=== PATIENT | male | born 1985 | race Caucasian/White ===

== ENCOUNTER 2021-06-22 22:50 | Emergency (ER) | payer BC, SELFPAY ==
--- NOTE | 2021-06-22 22:56 | ECG_ITS ---
Measurements Intervals [place] Rate: 117 P: 55 CT: 178 QRS: -53 QRSD: 94 T: 71 QT: 299 QTc: 418 Interpretive Statements SINUS TACHYCARDIA INCOMPLETE RIGHT BUNDLE BRANCH BLOCK LEFT ANTERIOR FASCICULAR BLOCK BASELINE ARTIFACT- I, III, AVR, V1 ABNORMAL ECG Electronically Signed On 06-23-2021 7:59:17 CDT by Dhruv Clinton D.O.
[2021-06-22 22:59] VITALS: BP 142/102; PULSE 105; RESP 18; TEMP 36.7; O2SAT 100
[2021-06-23 01:11] VITALS: BP 143/85; PULSE 100; RESP 16; O2SAT 100
--- NOTE | 2021-06-23 02:15 | ED.HEATRA ---
HPI - Head Injury General Chief complaint: Head Injury Stated complaint: fall 5 days ago Time Seen by Provider: 06/23/21 01:13 History of Present Illness HPI Narrative: Patient is a 35-year-old male who presents ER with concerns of concussion. Reports 5 days ago he was out drinking when he tripped and fell and struck his head. Since then he has been having some mild headache and feeling more fatigued. Occasionally finds that he is searching for words. Symptoms worsen with staring at his computer and other physical activity. No fevers or chills or sweats. No loss of consciousness. Related Data Home Medications Medication Instructions Recorded Confirmed labetalol mg PO DAILY 06/22/21 Allergies Allergy/AdvReac Type Severity Reaction Status Date / Time No Known Allergies Allergy Verified 06/22/21 23:07 Review of Systems Review of Systems: All systems reviewed & are unremarkable except as noted in HPI and below Constitutional: Constitutional: Denies chills, Denies fever(s) and Denies weakness ENT: Denies nasal congestion and Denies sore throat Cardiovascular: Cardiovascular: Denies chest pain and Denies radiating jaw, neck or arm pain Gastrointestinal: Gastrointestinal: Reports nausea and Denies vomiting Musculoskeletal: Musculoskeletal: Denies back pain and Denies muscle cramps Neurologic: Denies dizziness, Denies syncope, Reports headache(s), Denies focal weakness and Denies numbness PMFSH Past Medical History Medical History (Updated 06/23/21 @ 02:18 by Artis Franco MD) Anxiety Surgical History Surgical History (Updated 06/23/21 @ 02:17 by Artis Franco MD) No pertinent past surgical history Social History Social History (Updated 06/23/21 @ 02:17 by Artis Franco MD) Smoking status: Never smoker Exam Narrative: GENERAL: Well-appearing, well-nourished, and in no acute distress. HEAD: Normocephalic, atraumatic. EYES: PERRL and EOMI. CHEST: Clear to auscultation. No respiratory distress. HEART: Regular rate and rhythm. Normal peripheral pulses. ABDOMEN: Soft, nontender, nondistended. EXTREMITIES: Normal range of motion. No edema. SKIN: Warm, dry, no rash. NEURO: No focal deficits. Alert and oriented x3. PSYCH: Normal mood and affect. Course Course Emergency Course: Feel patient has concussion syndrome. Do not feel he needs a CT scan. Discharge home. Discussed treatment plan. Vital Signs Vital signs: Vital Signs Temperature 98.1 F 06/22/21 22:59 Pulse Rate 105 H 06/22/21 22:59 Respiratory Rate 18 06/22/21 22:59 Blood Pressure 142/102 H 06/22/21 22:59 Pulse Oximetry 100 06/22/21 22:59 Temperature 98.1 F 06/22/21 22:59 Pulse Rate 100 06/23/21 01:11 Respiratory Rate 16 06/23/21 01:11 Blood Pressure 143/85 H 06/23/21 01:11 Pulse Oximetry 100 06/23/21 01:11 Discharge Plan Discharge Clinical Impression: Concussion Patient Disposition: Home, Self-Care Condition: Stable Instructions: Concussion (ED) Additional Instructions: Return the ER if you have fever over 100.4 ?F, you cannot keep down food or water, you have chest pain or shortness of breath, you have additional concerns. Prescriptions: No Action labetalol PO DAILY RF: 0 Follow-up/Referrals: Eliseo,Ronnie Leon MD [Primary Care Provider] - 1 Week
== END 2021-06-23 02:51 | disposition home or self-care (01) ==
PROVIDERS: Emergency Provider Emergency Medicine; PCP Internal Medicine
DX: S06.0X9A Concussion with loss of consciousness of unspecified duration, initial encounter (principal); R00.0 Tachycardia, unspecified; I45.2 Bifascicular block; W01.0XXA Fall on same level from slipping, tripping and stumbling without subsequent striking against object, initial encounter
CPT/HCPCS: 93005; 99283